=== PATIENT | male | born 1980 | race Hispanic/Latino ===

== ENCOUNTER 2018-09-17 10:23 | Emergency (ER) | payer SELFPAY ==
[~2018-09-17] VITALS: Ht 170.2 cm; Wt 95.3 kg
== END 2018-09-17 11:29 | disposition left against medical advice (07) ==
LOC: ER 10:23
DX: G43.C0 Periodic headache syndromes in child or adult, not intractable (principal); E66.9 Obesity, unspecified; Z68.32 Body mass index [BMI] 32.0-32.9, adult; R00.0 Tachycardia, unspecified; F17.200 Nicotine dependence, unspecified, uncomplicated
CPT/HCPCS: 93005